=== PATIENT | female | born 1965 | race Caucasian/White ===

== ENCOUNTER 2017-07-10 06:48 | Day surgery (SDC) | payer BC ==
[~2017-07-10 06:48] MED LIST: FLUT1INH INH; FURO1TAB62 PO; LEVO50TA4 PO; SPIR25TA PO; VENTAER INH
[2017-07-10 07:05] VITALS: BP 120/57; PULSE 65; RESP 18; TEMP 97.7; O2SAT 100
[2017-07-10] MEDS ORDERED: ATOR80TA45 PO (07:13)
[2017-07-10] MEDS ORDERED: UMEC1INH INH (07:13)
[2017-07-10] MEDS ORDERED: LEXA20TA PO (07:13)
[2017-07-10] MEDS ORDERED: TIZA2CAP3 PO (07:13)
[2017-07-10] MEDS ORDERED: LORA2TAB7 PO (07:13)
[2017-07-10] MEDS ORDERED: BENZ1CAP51 PO (07:13)
[2017-07-10] MEDS ORDERED: SODIUM CHLOR 0.9% 1000 ML INJ 1,000 ML IV SCH (07:15)
[2017-07-10 07:46] LABS: AUTOMATED NEUTROPHIL # 4.3 TH/MM3 (1.8-7.7); BASOPHIL # 0.1 TH/MM3 (0-0.2); BASOPHIL % 0.7 % (0.0-2.0); EOSINOPHIL # 0.1 TH/MM3 (0-0.4); EOSINOPHIL % 1.2 % (0.0-4.0); HEMATOCRIT 41.9 % (35.0-46.0); HEMOGLOBIN 14.1 GM/DL (11.6-15.3); LYMPH % 39.8 % (9.0-44.0); LYMPHOCYTE # 3.3 TH/MM3 (1.0-4.8); MEAN CELL VOLUME 93.3 FL (80.0-100.0); MEAN CORPUSCULAR HEMOGLOBIN 31.5 PG (27.0-34.0); MEAN CORPUSCULAR HGB CONC 33.7 % (32.0-36.0); MEAN PLATELET VOLUME 8.1 FL (7.0-11.0); MONO % 7.2 % (0.0-8.0); MONOCYTE # 0.6 TH/MM3 (0-0.9); NEUT % 51.1 % (16.0-70.0); PLATELET COUNT 327 TH/MM3 (150-450); RED BLOOD COUNT 4.49 MIL/MM3 (4.00-5.30); WHITE BLOOD COUNT 8.3 TH/MM3 (4.0-11.0)
[2017-07-10 08:07] LABS: BICARBONATE 25.7 MEQ/L (21.0-32.0); CALCIUM 8.7 MG/DL (8.5-10.1); CREATININE 0.96 MG/DL (0.50-1.00)
[2017-07-10 09:03] LABS: INTERNATIONAL NORMALIZED RATIO 0.9 RATIO; PROTHROMBIN TIME - PATIENT 9.4 SEC (9.8-11.6)
--- NOTE | 2017-07-10 09:40 | PD.RAD ---
Post Procedure Progress Note Procedure Date: July 10, 2017 Supervising Radiologist: Sunil Lewis Proceduralist/Assist: Lucho Gallegos RT(R), RT Danica(R)(CV) Anesthesia: Local Plan of Activity Patient to Unit: [facility] Patient Condition: Good See PACS Report for procedural detail/treatment Sunil Lewis MD July 10, 2017 09:40
[2017-07-10 09:45] VITALS: BP 107/73; PULSE 56; RESP 20; TEMP 98.5; O2SAT 95
[2017-07-10 10:16] LABS: TOTAL PROTEIN,CSF 45.3 MG/DL (15.0-45.0)
[2017-07-10 10:50] LABS: CSF LYMPHOCYTES 25 %; CSF MONOCYTES 75 %; CSF NEUTROPHILS 0 %; RBC TUBE #4 0 /MM3; SUPERNATE COLOR TUBE #1 CLEAR (CLEAR); VOLUME TUBE # 1 2.3 ML; WBC TUBE #4 2 /MM3 (0-10)
[2017-07-10 11:30] VITALS: BP 117/80; PULSE 60; RESP 20; O2SAT 95
--- NOTE | 2017-07-10 15:27 | RADRPT ---
EXAM DATE: 07/10/2017 10:07 AM EDT AGE/SEX: 52 years / Female INDICATIONS: Patient with muscle weakness and pain. r/o/MS. CLINICAL DATA: This is the patient's initial encounter. Patient reports that signs and symptoms have been present for > 1 year and indicates a pain score of 0/10. MEDICAL/SURGICAL HISTORY: Chronic obstructive pulmonary disease. HTNhypothyroidprolonged QT syn drome Hysterectomy. cyst removal from ovariesbladder sling tonsillectomy COMPARISON: No prior [facility] exams available for comparison. FLUORO TIME (min): 0.25 IMAGE SERIES: 1 ACCESS SITE: L3-4 LUMBAR PUNCTURE TIME: 0936 hours OPENING PRESSURE: 17.75 cm of water CLOSING PRESSURE: not requested FLUID: Total volume of 11 cc of clear fluid was removed. Fluid was sent to lab for ordered studies. . . PROCEDURE: 1. Fluoroscopic guided lumbar puncture. 2. Recording of opening pressure. The risks, benefits and alternatives to the procedure were explained and verbal and written consent w as obtained. The site was prepped in sterile fashion. Full sterile technique was used, including ca p, mask, sterile gloves and gown and a large sterile sheet. Hand hygiene and 2% chlorhexidine and/or betadine/alcohol prep was utilized per protocol for cutaneous antisepsis. The skin and subcutaneous tissues were infiltrated with local anesthetic solution. With fluoroscopic guidance the lumbar thecal sac was punctured at the above level described above and the opening pressure was recorded. The above described fluid was removed without difficulty. The patient tolerated the procedure well and there were no complications. CONCLUSION: 1. Uncomplicated fluoroscopically guided lumbar puncture with pressures as above. Electronically signed by: Sunil Lewis MD 07/10/2017 3:26 PM EDT
== END 2017-07-10 11:40 | disposition home or self-care (01) ==
LOC: HROP 06:48 → HRIP 06:52 → HROP 11:40
PROVIDERS: ATTEND Specialist
DX: G37.2 Central pontine myelinolysis (principal); I10 Essential (primary) hypertension; J44.9 Chronic obstructive pulmonary disease, unspecified; E03.9 Hypothyroidism, unspecified; I45.81 Long QT syndrome
CPT/HCPCS: 62270; 77003; 80048; 82945; 84157; 85025; 85610; 85730; 86592; 89051; J7030